=== PATIENT | female | born 1935 | race Caucasian/White ===

== ENCOUNTER 2016-05-22 21:54 | Emergency (ER) | payer MEDICARE ==
[~2016-05-22 21:54] MED LIST: ATACAND8 MG PO; BAYER CHEWABLE81 MG PO; CALCIUM CARBON500 MG PO; KLOR-CON 1010 MEQ PO; NOVOLOG PE100 UNITS/ SC; SYNTHROID100 MCG PO; TUMS500 MG PO; VICODIN EQUIVAL1 TAB PO; VITAMIN D PO
--- NOTE | 2016-05-22 22:59 | ED ORDER SUMMARY ---
..... Patient: SILVIANO BRADSHAW OrderSheet [facility] VisitID: [id number] [address] [place] [address] 81y, F Registration Date/Time: 05/22/2016 ORDER SHEET Weight: 77.1 kg (stated) Allergies: PCN GENERAL ORDERS: MEDICATION ORDERS: Afrin Nasal [place] 2 sprays (NOW, both nares) (22:23 05/22/2016 Ivan Hernandez) (Ack 22:29 HSoule) (22:35 HSoule) IV FLUIDS: ORDER SHEET NOTES: [Electronically signed by Micha Armstrong R.N. (03:23 05/23/2016)] [Electronically signed by Colby Mathias Dr. (04:18 05/25/2016)] [Electronically locked/signed by Micha Armstrong R.N. (03:05/23/2016)]
--- NOTE | 2016-05-22 22:59 | ED CLINICAL REPORT ---
Clinical Report - Physicians/Mid Levels [facility] [address] [place] [address] 05/22/2016 21:53 Patient: SILVIANO BRADSHAW Time Seen: 2210. Arrived- By ambulance. Historian- patient. HISTORY OF PRESENT ILLNESS Chief Complaint: NOSEBLEED. Since today and is still present but is improving. It was abrupt in onset and has been constant but is not gone now. Location- right nare. The patient has had epistaxis. (happened spontaneously. reports hx of these since a child. no blood thinners). Similar symptoms previously: Many times. Recent medical care: Not recently seen/assessed. REVIEW OF SYSTEMS No fever, chills, cough, difficulty breathing or chest pain. All systems otherwise negative, except as recorded above. PAST HISTORY See nurses notes. SOCIAL HISTORY Never smoker. No alcohol use or drug use. No recent travel. Is a local resident. ADDITIONAL NOTES The nursing notes have been reviewed. PHYSICAL EXAM Vital Signs: Oxygen saturation normal. Appearance: Alert. No acute distress. Eyes: Eyes normal inspection. ENT: Ears normal. Throat: Pharynx normal. Nose: Active bleeding present. Fresh clots present. Dried blood present. Neck: Normal inspection. Neck supple. CVS: Normal heart rate and rhythm. Heart sounds normal. Respiratory: No respiratory distress. Breath sounds normal. Abdomen: Soft and nontender. No organomegaly. Skin: Skin warm and dry. Normal skin color. No rash. Normal skin turgor. Extremities: Extremities exhibit normal ROM. No lower extremity edema. PROGRESS AND PROCEDURES Course of Care: The patient is a pleasant 81-year-old female presented for evaluation nosebleeds. Patient has a history of nosebleeds. Patient reports no inciting factors for the start of her nosebleed. Patient course of the last nosebleed that she has had is approximately 1 year ago. Patient reports that she's been having nosebleed problems in [place]. Patient was no inciting factors. No other symptoms noted. Laboratory studies are warranted at this time. Patient reports not being on any blood thinners or aspirin. Patient is monitored in the emergency department. Afrin nose spray was applied. The patient's nosebleed was able to be controlled with the Afrin nose spray however patient appears to have some mild dementia and continues to pick at the right Seg[place]. Patient subsequently developed a rebleed of her nose. Repeat Afrin spray was ordered. Patient tolerated procedure well. Bleeding has been controlled here in the emergency department. Because of the patient's baseline dementia, she was reportedly asking for her cane. Patient also states that she like to go home however we needed to verify that there was an appropriate place for the patient to return home. Patient does not recall her address. Once patient's address and location was confirmed, we contacted transport to have the patient return home. Patient continues to have adequate control of her nosebleed. Patient has not had any repeat nose bleeding after the second episode. Patient was confirmed to return home safely. There is a young adult that was available to help the patient into her house. The young adult also mentioned to the transport team they would be able to take care of the patient. Do not fill patient is admitted to hospital require further emergency department workup/evaluation. Bone loss throughout her stay here in the emergency department was less than 20 cc. Disposition: Discharged. Condition: good. CLINICAL IMPRESSION Acute posterior, mild epistaxis (right). Uncontrolled essential hypertension. INSTRUCTIONS Warnings: GENERAL WARNINGS: Return or contact your physician immediately if your condition worsens or changes unexpectedly, if not improving as expected, or if other problems arise. Specifically return if pain, vomiting, bleeding, breathing difficulty or fever. Your Current Medications: CONTINUE TAKING THE FOLLOWING MEDICATIONS: Aspirin Oral. Follow-up: Return to the emergency department as needed. Follow up with your doctor in three days. Reason for referral: recheck today's concerns. Summary of care provided to patient via paper. Screening today revealed the patient's blood pressure to be in the normal range. The patient should follow up with a primary care provider for blood pressure management. Understanding of the discharge instructions verbalized by patient. Follow-up with: Dougie Avelar MD, ENT, , [facility], [address], [facility], [address] Follow up in one week. Reason for referral: recheck today's concerns. Summary of care provided to patient via paper. (Electronically signed by Colby Mathias Dr. 05/25/2016 4:18)
--- NOTE | 2016-05-22 22:59 | ED NURSING NOTES ---
Clinical Report - Nurses [facility] [address] [place] [address] 05/22/2016 21:53 Patient: SILVIANO BRADSHAW TRIAGE Triage time 21:57 May 22 2016. Acuity: LEVEL 3. Chief Complaint: NOSEBLEED. 22:01 05/22/16. SEPSIS SCREEN: Sepsis Screen: negative. Negative (no infection suspected/documented). ROLO COMA SCORE: [place] Coma Scale: 15- eyes open spontaneously (4); best verbal response- oriented x 4 (5); best motor response- obeys commands (6). --22:01 Davida Milligan 21:57 05/22/16. BP: 210/72. HR: 72. RR: 20. O2 saturation: 98% on room air. Temp: 98.1 F (oral). Pain level now: 0/10. --22:01 Davida Milligan. Weight: 77.1 kg stated. Height/Length: 61 inches Per Patient. BMI: 32.1. --22:00 Davida Milligan. Medications Aspirin Oral. --21:58 Davida Milligan. Medication/allergy information source: the patient. --22:01 Davida Milligan. Allergies PCN. --21:59 Davida Milligan. History Arrived by EMS. Historian: patient. Unaccompanied. Primary physician (none). This started just prior to arrival. ( Patient reports a nosebleed for one hour. Patient denies being on blood thinners, she states she takes ASA occasionally. She reports she can feel blood clot in her throat). 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 BP: 248 / 90. HR: 80. PAST MEDICAL HX: Immunizations: up-to-date. SOCIAL HX: Former smoker, end date 1987. No alcohol use or drug use. No infectious disease exposure. ABUSE ASSESSMENT: No report of abuse. FALL RISK ASSESSMENT: Fall risk assessment completed. No fall risk identified. NUTRITIONAL RISK ASSESSMENT: The nutritional risk assessment revealed no deficiencies. FUNCTIONAL ASSESSMENT: Functional assessment: no impairments noted. LEARNING NEEDS ASSESSMENT: The learning needs assessment revealed no barriers. SKIN INTEGRITY ASSESSMENT: Skin integrity risk assessment completed. No skin integrity risk identified. --22:01 Davida Milligan. PROBLEMS: Tibia Fracture. Ovarian Cancer. Osteoporosis. Hyperventilation. Gastroesophageal Reflux. Environmental Allergies. Hyperlipidemia. Hypertension. --:59 Davida Milligan. ADDITIONAL SURGERIES: Oophorectomy. --:59 Davida Milligan. Interventions ID band on patient. To treatment room. --22: Davida Milligan. PHYSICAL ASSESSMENT 22:05/22/16. To room via stretcher. GENERAL / NEURO / PSYCH: Alert. Appears in no acute distress. HEENT: No facial asymmetry noted. Pupils equal, round and reactive to light. Right-nare and left-nare active bleeding from uncertain location. RESPIRATORY: Respirations not labored. SKIN: Skin is warm and dry. --22:02 Davida Milligan. NURSING PROGRESS NOTES Monitoring of patient in place. Head of bed elevated. Reassurance given to the patient. Two patient identifiers checked. Call light placed in reach. Side rails up x 1. Bed placed in lowest position. Brakes of bed on. Patient ready for evaluation- chart flagged and ED physician notified. ( bleeding is controlled at this time). --22:03 Davida Milligan 22:35 05/22/2016 Afrin (Oxymetazoline HCl) Nasal [place] 2 spray given. Given in both nares. Allergies verified and confirmed 5 rights. --22:35 Davida Milligan ( Patient assisted with clean up of her face and hands. Patient assisted up to use restroom. Patient states she is ready to go home.). --22:56 Davida Milligan ( Patient family unable to be contacted, patient reports she wants to take a cab home.). --23:27 Davida Milligan ( Patient requesting to see provider again, patient somewhat disoriented at this time. Provider notified and at bedside). --23:39 Davida Milligan Care transferred and report given (Micha Leary). --00:09 Davida Milligan ( Nose is still bleeding at this time. Silviano expresses a desire to go home via cab but also states "they haven't cured me." She seems confused at this time. She has made remarks such as "I haven't even seen the doctor" and "I need to go to a real hospital." Have told Silviano, many times, we will arrange for a safe ride home for her after she is cleared by the doctor. Silviano wanders the halls and cannot remember redirection/reminders from staff she is not yet cleared by the EDP and we need to ensure a safe ride home. We have made multiple attempts to call Pamela and the home number listed on her Face Sheet but no voice boxes are set up to receive messages. Multiple attempts to reach family have been unsuccessful. Staff worried Silviano will not be able to enter her home upon arrival to her house as she does not have a trujillo with her at this time.). --00:22 Micha Armstrong R.N. DISPOSITION / DISCHARGE Departure time: 0245. Condition at departure: stable. The goals identified in the patient's plan of care were met. Discharge instructions provided and reviewed with the patient (EMS). Patient verbalized understanding. Written instructions provided in Indian. Verbalized understanding (EMS). ( Silviano has no questions and voices no concerns at this time.). The patient was discharged by the physician. She was discharged home and accompanied by EMS. She left the Emergency Department via ambulance and on a stretcher. ( Per [place] [facility] crew, young man accepted responsibility for Silviano at her home. EMS crew reported home is well kept and updated.). ROLO COMA SCORE: [place] Coma Scale: 14- eyes open spontaneously (4); best verbal response- disoriented (4); best motor response- obeys commands (6). --03:23 Micha Armstrong R.N. 02:45 05/23/16. BP: 190/80 (regular adult cuff) taken on the left arm, via an automated monitor, while sitting. HR: 88 (normal rate). RR: 16 (regular, unlabored and normal). O2 saturation: 92% on room air. Temp: 97.8 F (oral). Additional comments: Dr. Mathias aware of d/c BP, okay to d/c home at this time. . --03:23 Micha Armstrong R.N. Locked/Released at 05/23/2016 3:23 by Micha Armstrong R.N.
--- NOTE | 2016-05-22 22:59 | ED CLINICAL REPORT ---
Clinical Report - Physicians/Mid Levels [facility] [address] [place] [address] 05/22/2016 21:53 Patient: SILVIANO BRADSHAW Time Seen: 2210. Arrived- By ambulance. Historian- patient. HISTORY OF PRESENT ILLNESS Chief Complaint: NOSEBLEED. Since today and is still present but is improving. It was abrupt in onset and has been constant but is not gone now. Location- right nare. The patient has had epistaxis. (happened spontaneously. reports hx of these since a child. no blood thinners). Similar symptoms previously: Many times. Recent medical care: Not recently seen/assessed. REVIEW OF SYSTEMS No fever, chills, cough, difficulty breathing or chest pain. All systems otherwise negative, except as recorded above. PAST HISTORY See nurses notes. SOCIAL HISTORY Never smoker. No alcohol use or drug use. No recent travel. Is a local resident. ADDITIONAL NOTES The nursing notes have been reviewed. PHYSICAL EXAM Vital Signs: Oxygen saturation normal. Appearance: Alert. No acute distress. Eyes: Eyes normal inspection. ENT: Ears normal. Throat: Pharynx normal. Nose: Active bleeding present. Fresh clots present. Dried blood present. Neck: Normal inspection. Neck supple. CVS: Normal heart rate and rhythm. Heart sounds normal. Respiratory: No respiratory distress. Breath sounds normal. Abdomen: Soft and nontender. No organomegaly. Skin: Skin warm and dry. Normal skin color. No rash. Normal skin turgor. Extremities: Extremities exhibit normal ROM. No lower extremity edema. PROGRESS AND PROCEDURES Course of Care: The patient is a pleasant 81-year-old female presented for evaluation nosebleeds. Patient has a history of nosebleeds. Patient reports no inciting factors for the start of her nosebleed. Patient course of the last nosebleed that she has had is approximately 1 year ago. Patient reports that she's been having nosebleed problems in [place]. Patient was no inciting factors. No other symptoms noted. Laboratory studies are warranted at this time. Patient reports not being on any blood thinners or aspirin. Patient is monitored in the emergency department. Afrin nose spray was applied. The patient's nosebleed was able to be controlled with the Afrin nose spray however patient appears to have some mild dementia and continues to pick at the right Segundo. Patient subsequently developed a rebleed of her nose. Repeat Afrin spray was ordered. Patient tolerated procedure well. Bleeding has been controlled here in the emergency department. Because of the patient's baseline dementia, she was reportedly asking for her cane. Patient also states that she like to go home however we needed to verify that there was an appropriate place for the patient to return home. Patient does not recall her address. Once patient's address and location was confirmed, we contacted transport to have the patient return home. Patient continues to have adequate control of her nosebleed. Patient has not had any repeat nose bleeding after the second episode. Patient was confirmed to return home safely. There is a young adult that was available to help the patient into her house. The young adult also mentioned to the transport team they would be able to take care of the patient. Do not fill patient is admitted to hospital require further emergency department workup/evaluation. Bone loss throughout her stay here in the emergency department was less than 20 cc. Disposition: Discharged. Condition: good. CLINICAL IMPRESSION Acute posterior, mild epistaxis (right). Uncontrolled essential hypertension. INSTRUCTIONS Warnings: GENERAL WARNINGS: Return or contact your physician immediately if your condition worsens or changes unexpectedly, if not improving as expected, or if other problems arise. Specifically return if pain, vomiting, bleeding, breathing difficulty or fever. Your Current Medications: CONTINUE TAKING THE FOLLOWING MEDICATIONS: Aspirin Oral. Follow-up: Return to the emergency department as needed. Follow up with your doctor in three days. Reason for referral: recheck today's concerns. Summary of care provided to patient via paper. Screening today revealed the patient's blood pressure to be in the normal range. The patient should follow up with a primary care provider for blood pressure management. Understanding of the discharge instructions verbalized by patient. Follow-up with: Dougie Avelar MD, ENT, , [facility], [address], [facility], [address] Follow up in one week. Reason for referral: recheck today's concerns. Summary of care provided to patient via paper. (Electronically signed by Colby Mathias Dr. 05/25/2016 4:18)
--- NOTE | 2016-05-22 22:59 | ED ORDER SUMMARY ---
..... Patient: SILVIANO BRADSHAW OrderSheet [facility] VisitID: [id number] [address] [place] [address] 81y, F Registration Date/Time: 05/22/2016 ORDER SHEET Weight: 77.1 kg (stated) Allergies: PCN GENERAL ORDERS: MEDICATION ORDERS: Afrin Nasal [place] 2 sprays (NOW, both nares) (22:23 05/22/2016 Ivan Hernandez) (Ack 22:29 HSoule) (22:35 HSoule) IV FLUIDS: ORDER SHEET NOTES: [Electronically signed by Micha Armstrong R.N. (03:23 05/23/2016)] [Electronically signed by Colby Mathias Dr. (04:18 05/25/2016)] [Electronically locked/signed by Micha Armstrong R.N. (03:05/23/2016)]
--- NOTE | 2016-05-25 04:19 | ED MAR SUMMARY ---
..... Medication Administration Record [facility] [address] [place] [address] Patient: SILVIANO BRADSHAW Visit ID: [id number] 81y, F Weight: 77.1 kg Height/Length: 61 in BMI: 32.1 ALLERGIES: PCN Given 22:35 05/22/2016 Davida Milligan, Medication Administered: AFRIN [NASAL SPRAY] (OXYMETAZOLINE HCL), Dose: 2 spray [place] Nasal [place]. Medication Ordered: Afrin Nasal [place] 2 sprays (NOW, both nares).
--- NOTE | 2016-05-25 04:19 | ED DISCHARGE INSTRUCTIONS ---
Patient: SILVIANO BRADSHAW General Instructions [facility] VisitID: [id number] [address] [place] [address] 81y, F Registration Date/Time: 05/22/2016 Acute posterior, mild epistaxis (right). Uncontrolled essential hypertension. INSTRUCTIONS Warnings: GENERAL WARNINGS: Return or contact your physician immediately if your condition worsens or changes unexpectedly, if not improving as expected, or if other problems arise. Specifically return if pain, vomiting, bleeding, breathing difficulty or fever. Your Current Medications: CONTINUE TAKING THE FOLLOWING MEDICATIONS: Aspirin Oral. Follow-up: Return to the emergency department as needed. Follow up with your doctor in three days. Reason for referral: recheck today's concerns. Summary of care provided to patient via paper. Screening today revealed the patient's blood pressure to be in the normal range. The patient should follow up with a primary care provider for blood pressure management. Understanding of the discharge instructions verbalized by patient. Follow-up with: Dougie Avelar MD, ENT, , [place] [id number] Follow up in one week. Reason for referral: recheck today's concerns. Summary of care provided to patient via paper. ADDITIONAL INFORMATION Nosebleed [Adult] Bleeding from the nose most commonly occurs due to injury or drying and cracking of the inner lining of the nose. This can occur during a "common cold," "hay fever" attack, a very hot day, or from dry air in the winter. High blood pressure and hardening of the arteries (atherosclerosis) may also cause nosebleeds. If the bleeding site is found, it may be treated with a chemical or heat or electricity to cause a blood clot to form (cauterized). If the bleeding continues after cautery or if the bleeding site cannot be found, a packing may be placed in your nose to apply pressure and stop the bleeding. The packing may be made of gauze or sponge. A small balloon catheter is sometimes used. These need to be removed by your doctor. Some types of packing dissolve on their own. Home Care: If a packing was put in your nose, unless told otherwise, do not pull on it or try to remove it yourself. You will be given an appointment to have it removed. You may also have been given antibiotics to prevent a sinus infection. If so, complete all the medicine. Do not blow your nose for 12 hours after the bleeding stops. This will allow a strong blood clot to form. Do not pick your nose. This may restart bleeding. Avoid alcohol and hot liquids for the next two days. Alcohol or hot liquids in your mouth can dilate blood vessels in your nose and cause bleeding to start again. Do not take ibuprofen (Advil, Motrin), naprosyn (Aleve) or aspirin-containing medicines since these thin the blood and may promote nose bleeding. You may take Tylenol (acetaminophen) for pain, unless another pain medicine was prescribed. If the bleeding starts again, sit up and lean forward to prevent swallowing blood. Pinch your nose tightly for exactly 5 minutes (watch the clock). If bleeding is not controlled, continue to pinch and call your doctor or return to this facility. If high blood pressure was a cause for your nosebleed, have your blood pressure checked again tomorrow. If you have a "cold" or "hay fever" or dry nasal membranes, lubricate the nasal passages by applying a small amount of Vaseline inside the nose with a Q-tip twice a day (morning and night). Avoid overheating your home, which can dry the air and worsen your condition. Follow Up with your doctor as advised for packing removal. Nasal packing should be rechecked or removed within 2-3 days. Get Prompt Medical Attention if any of the following occur: Another nosebleed that you cannot control Dizziness, weakness or fainting Fever of 100.4F (38C) or higher, or as directed by your healthcare provider Headache Sinus or facial pain Shortness of breath or trouble breathing High Blood Pressure --Established High Blood Pressure (Hypertension) is a chronic disease. The cause is unknown in most cases. It can usually be controlled with lifestyle changes and/or medicines. Symptoms of high blood pressure may include headache, dizziness, visual changes, chest pain and shortness of breath. Sometimes it causes no symptoms at all. However, even if there are no symptoms, untreated high blood pressure increases the risk of heart attack, also known as acute myocardial infarction, or AMI, and stroke. It is a serious health risk and should not be ignored. A normal blood pressure is 120/80 or less. The first (top) number is the "systolic" pressure. The second (bottom) number is the "diastolic" pressure. Hypertension exists when either the top number is 140 or higher, OR the bottom number is 90 or higher on repeated measurements. Home Care: All patients with high blood pressure should do the following to lower their pressure. If you are on medicines, then these methods may reduce or eliminate your need for medicines in the future. Begin a weight loss program if you are overweight. Reduce your salt intake. Avoid high salt foods (olives, pickles, smoked meats, salted potato chips, etc.). Do not add salt to your food at the table. Use only small amounts of salt when cooking. Begin an exercise program. Discuss with your doctor what type of exercise program would be best for you. It doesn't have to be difficult. Even brisk walking for 20 minutes three times a week is a good form of exercise. Avoid medicines which contain heart stimulants. This includes many cold and sinus decongestant pills and sprays as well as diet pills. Check the warnings about hypertension on the label. Stimulants such as amphetamine or cocaine could be lethal for someone with hypertension. Never take these. Limit your caffeine intake or switch to caffeine-free products. Stop smoking. If you are a long-time smoker, this can be hard. Enroll in a stop-smoking program to improve your chance of success. Learning how to handle stress better is an important part of any program to lower blood pressure. Learn about relaxation methods such as meditation, yoga or biofeedback. If medicines were prescribed, take them exactly as directed. Missing doses may cause your blood pressure get out of control. Consider buying an automatic blood pressure machine (available at most pharmacies). Use this to monitor your blood pressure at home and report the results to your doctor. Follow Up: Regular visits to your own physician for blood pressure checks and medicine adjustment is an important part of your care. Make a follow-up appointment as directed by our staff. Get Prompt Medical Attention if any of the following occur: Chest pain or shortness of breath Severe headache Throbbing or rushing sound in the ears Nosebleed Sudden severe abdominal pain Extreme drowsiness, confusion or fainting Dizziness or vertigo (dizziness with spinning sensation) Weakness of an arm or leg or one side of the face Difficulty with speech or vision You have been given the following additional information: Epistaxis (Adult) Hypertension, Established (Electronically signed by Colby Mathias Dr. 05/25/2016 4:18)
--- NOTE | 2016-05-25 04:19 | ED MED RECONCILIATION SUMMARY ---
Patient: SILVIANO BRADSHAW Medication Reconciliation Report [facility] VisitID: [id number] [address] [place] [address] 81y, F Registration Date/Time: 05/22/2016 Weight: 77.1 kg Height/Length: 61 in. BMI: 32.1 ALLERGIES: PCN The patient's Home Medications are listed below: CONTINUE TAKING THE FOLLOWING MEDICATIONS: Aspirin Oral The source(s) of the original Home Medication information: patient The following Medications were given to the patient in the Emergency Department: Afrin [Nasal [place]] Nasal [place] 2 spray, administered: 05/22/2016 10:35:00 PM The following Medications were prescribed to the patient: None.
--- NOTE | 2016-05-25 04:19 | ED MAR SUMMARY ---
..... Medication Administration Record [facility] [address] [place] [address] Patient: SILVIANO BRADSHAW Visit ID: [id number] 81y, F Weight: 77.1 kg Height/Length: 61 in BMI: 32.1 ALLERGIES: PCN Given 22:35 05/22/2016 Davida Milligan, Medication Administered: AFRIN [NASAL SPRAY] (OXYMETAZOLINE HCL), Dose: 2 spray [place] Nasal [place]. Medication Ordered: Afrin Nasal [place] 2 sprays (NOW, both nares).
--- NOTE | 2016-05-25 04:19 | ED MED RECONCILIATION SUMMARY ---
Patient: SILVIANO BRADSHAW Medication Reconciliation Report [facility] VisitID: [id number] [address] [place] [address] 81y, F Registration Date/Time: 05/22/2016 Weight: 77.1 kg Height/Length: 61 in. BMI: 32.1 ALLERGIES: PCN The patient's Home Medications are listed below: CONTINUE TAKING THE FOLLOWING MEDICATIONS: Aspirin Oral The source(s) of the original Home Medication information: patient The following Medications were given to the patient in the Emergency Department: Afrin [Nasal [place]] Nasal [place] 2 spray, administered: 05/22/2016 10:35:00 PM The following Medications were prescribed to the patient: None.
== END 2016-05-23 02:45 | disposition home or self-care (01) ==
LOC: ED SRH 21:54
DX: R04.0 Epistaxis (principal); I10 Essential (primary) hypertension; F03.90 Unspecified dementia, unspecified severity, without behavioral disturbance, psychotic disturbance, mood disturbance, and anxiety

== ENCOUNTER 2016-06-07 15:05 | Emergency (ER) | payer OTHER ==
--- NOTE | 2016-06-07 15:58 | DIAGNOSTIC IMAGING REPORT ---
PROCEDURE: XR WRIST MIN 3 VIEWS - LEFT INDICATION: TRAUMA/INJURY TECHNIQUE: Four views of the left wrist. COMPARISON: None. FINDINGS: Decreased mineralization. There is a transverse, comminuted, impacted distal radius with intra-articular extension. There is one full shaft width of dorsal displacement of the distal fragment including the radiocarpal articulation. The radiocarpal alignment appears preserved. Distal radial ulnar articulation appears maintained. Mild to moderate osteoarthritic changes of the first carpometacarpal and metacarpal phalangeal joint. Evidence of a prior fifth metacarpal neck fracture is seen with exuberant callus formation and moderate to persistent deformity. IMPRESSION: 1. Displaced, impacted, intra-articular distal radial fracture without dislocation. 2. Osteoarthritis. 3. Prior fifth metacarpal fracture.
--- NOTE | 2016-06-07 17:41 | ED ORDER SUMMARY ---
..... Patient: SILVIANO BRADSHAW OrderSheet [facility] VisitID: [id number] [place] [address] 81y, F Registration Date/Time: 06/07/2016 ORDER SHEET Weight: 77.5 kg (stated) Allergies: PCN GENERAL ORDERS: Wrist 3 or 4V Left Urgent (15:22 06/07/2016 EKoroleva P.A.-C) (Ack 15:30 TBergley) (15:44 Ilsa) Ice (15:23 06/07/2016 EKoroleva P.A.-C) (Ack 15:30 TBergley) (15:31 SReitz R.N.) EKG - ER Stat (15:25 06/07/2016 EKoroleva P.A.-C) (Ack 15:30 TBergley) (15:51 TBergley) Chest 1V Urgent (16:31 06/07/2016 EKoroleva P.A.-C) (Ack 16:33 TBergley) (16:46 Ilsa) Cardiac Panel Stat (16:31 06/07/2016 EKoroleva P.A.-C) (16:32 KKnebel R.N.) (Ack 16:33 TBergley) Ethyl Alcohol Urgent (17:16 06/07/2016 EKoroleva P.A.-C) (Ack 17:17 TBergley) (17:45 SReitz R.N.) Wrist 2V Left Urgent (17:16 06/07/2016 EKoroleva P.A.-C) (Ack 17:17 TBergley) (17:29 SReitz R.N.) CT Head wo Cont Urgent (18:13 06/07/2016 EKoroleva P.A.-C) (Ack 18:20 TBergley) (18:51 TBergley) MEDICATION ORDERS: IV FLUIDS: Dilaudid IV 0.5 mg (HIGH ALERT MEDICATION, NOW) (15:47 06/07/2016 EKoroleva P.A.-C) (Ack 16:00 RMarsden R.N.) (16:36 KKnebel R.N.) IV Saline Lock (15:47 06/07/2016 Jill Alvarez) (Ack 16:00 eCd Rucker) (19:32 Catherine) ORDER SHEET NOTES: [Electronically signed by Bertha Frye P.A.-C (19:56 06/07/2016)] [Electronically signed by Mitch Sam R.N. (20:03 06/07/2016)] [Electronically locked/signed by Mitch Sam R.N. (20:03 06/07/2016)]
--- NOTE | 2016-06-07 17:41 | ED NURSING NOTES ---
Clinical Report - Nurses [facility] [address] [place] [address] 06/07/2016 15:06 Patient: SILVIANO BRADSHAW TRIAGE Triage time 15:10. Acuity: LEVEL 4. Chief Complaint: FALL (GLF: pt. states she has a hx of falls. She thinks it is a "depth problem"). Alert. No acute distress. ( Pt. declines hitting her head and recalls the event. She said she does not get dizzy or feel weak before she falls she just stepped off her porch and down she went.). SEPSIS SCREEN: Sepsis Screen. Negative (no infection suspected/documented). YVONNE COMA SCORE: [place] Coma Scale: 15- eyes open spontaneously (4); best verbal response- oriented x 4 (5); best motor response- obeys commands (6). --15:25 Viry Foy R.N. 15:10 06/07/16. BP: 220/65. HR: 68. RR: 16. O2 saturation: 99%. Temp: 97.4 F. Pain level now 8/10. --15:25 Viry Foy R.N. <<STRICKEN ENTRY-- Weight: 77.1 kg estimated. Height/Length: 67 inches Estimated. BMI: 26.6. --END STRIKE>> --15:22 Viry Foy R.N.. Weight: 77.5 kg stated. Height/Length: 61 inches Per Patient. BMI: 32.3. --15:22 Viry Foy R.N. Medications Aspirin Oral. --15:24 Viry Foy R.N. Amlodipine. --15:25 Viry Foy R.N. LOSARTAN. --15:25 Viry Foy R.N. Allergies PCN. --15:24 Viry Foy R.N. History Arrived by EMS. Historian: patient. Primary physician (Dr. Rehman). Location of injuries: left wrist. This occurred today. Treatment WIRE BENDER HAND: None. PAST MEDICAL HX: Immunizations: up-to-date. SOCIAL HX: Smoker- current status unknown. No alcohol use or drug use. No infectious disease exposure. ABUSE ASSESSMENT: Abuse assessment: The patient was asked "Do you feel safe in your home?" and "Has anyone hurt you or threatened to hurt you?". No report of abuse. NUTRITIONAL RISK ASSESSMENT: The nutritional risk assessment revealed no deficiencies. LEARNING NEEDS ASSESSMENT: The learning needs assessment revealed no barriers. FALL RISK ASSESSMENT: Fall risk assessment completed per protocol. Risk factors identified include patient medications, age greater than 65 years and history of fall. Fall interventions initiated. Patient placed on stretcher. Side rails up x2. Brakes on Bed in low position. Patient visible from nurses' station and identified as a fall risk by ID band. Call light in reach of patient. Instructed not to get up without assistance. FUNCTIONAL ASSESSMENT: Functional assessment performed: cognitive impairment- Alzheimer's disease. --15:25 Viry Foy R.N. PROBLEMS: Epistaxis. Tibia Fracture. Ovarian Cancer. Osteoporosis. Hyperventilation. Gastroesophageal Reflux. Environmental Allergies. Hyperlipidemia. Hypothyroidism. Hypertension. --15:25 Viry Foy R.N. ADDITIONAL SURGERIES: Oophorectomy. --15:25 Viry Foy R.N. Interventions ID band on patient. Transported via stretcher. --15:25 Viry Foy R.N. PHYSICAL ASSESSMENT To room via stretcher. GENERAL / NEURO / PSYCH: Alert. Appears in no acute distress. RESPIRATORY: Respirations not labored. CVS: Capillary refill less than 2 seconds. SKIN: Skin intact. Skin is warm and dry. --15:25 Viry Foy R.N. EXTREMITIES: Left wrist: tenderness and swelling. --15:25 Viry Foy R.N. NURSING PROGRESS NOTES Cold pack applied. Two patient identifiers checked. Call light placed in reach. Side rails up x 2. Bed placed in lowest position. Brakes of bed on. Patient ready for evaluation- chart flagged. --15:25 Viry Foy R.N. 15:52 06/07/16. EKG time: (1550 PM). EKG was ordered, performed by a tech and shown to the ED physician. --15:52 Deepak Snyderler 16:09 06/07/16. BP: 203/70. HR: 66. O2 saturation: 95%. Pain level now: 06/08. --16:11 Myah Okeefe R.N. 16:24 06/07/2016 Site #1 started via IV in the right hand with an 22g angiocath, with aseptic technique and good blood return; two attempts. Blood drawn: rainbow set. Labeled in the presence of the patient and held. Saline lock flushed with 10 mL saline. --16:24 Myah Okeefe R.N. 16:36 06/07/2016 Dilaudid (HYDROmorphone HCl PF) IVP 0.5 mg given over 2 minute(s) via site #1. Allergies verified, confirmed 5 rights and sedative warning given to the patient. IV patency established. IV site checked: no pain, redness, or swelling. IV flushed thoroughly pre- and post-medication administration. --16:36 Myah Okeefe R.N. ( portable xray done at the bedside.). --16:42 Viry Foy R.N. ( Ortho at the bedside: assisted with reduction.). --17:15 Viry Foy R.N. 18:15. --18:42 Viry Foy R.N. 18:15 06/07/16. BP: 220/58. HR: 62. RR: 16. O2 saturation: 97%. --18:42 Viry Foy R.N. 18:35. ( assisted pt. to bathroom. Pt. tolerated well.). --18:44 Viry Foy R.N. Care transferred and report given (to Davida Russell RN). --18:50 Viry Foy R.N. DISPOSITION / DISCHARGE 19:38 06/07/2016 Site #1 removed upon discharge. Catheter intact. Bandaid applied. --19:38 Mitch Sam R.N. Departure time: 20:03. Condition at departure: improved. ( Pt was told to use ice and given an ice bag. Pt stated she would not do the ice. The friend said she would get her to the follow up.). No learning barriers present. Discharge instructions provided and reviewed with the patient. Reviewed medication(s) side effects, precautions, dosing and course information. Prescription(s) given to the patient (pain meds). Reviewed referral to an orthopedic surgeon. Patient verbalized understanding. Written instructions provided in Macedonian. The patient was discharged by the physician medical administrative assistant. She was discharged home and accompanied by spouse and gang ripsaw operator. She left the Emergency Department in a wheelchair and via private vehicle. [employer] driving. ( Pt refused to have her VS taken. Pt stated there was nothing wrong with her and she was fine.). YVONNE COMA SCORE: [place]von[place] Coma Scale: 14- eyes open spontaneously (4); best verbal response- disoriented (4); best motor response- obeys commands (6). --20:03 Mitch Sam R.N. Locked/Released at 06/07/2016 20:03 by Mitch Sam R.N.
--- NOTE | 2016-06-07 17:41 | ED CLINICAL REPORT ---
Clinical Report - Physicians/Mid Levels [facility] [address] [place] [address] 06/07/2016 15:06 Patient: SILVIANO BRADSHAW Time Seen: 15:11 Jun 07 2016. Arrived- By ambulance. Historian- EMS personnel. HISTORY OF PRESENT ILLNESS Location of injuries- right wrist. Chief Complaint: FALL. The injury occurred just prior to arrival. Fell. Occurred at home. The patient complains of moderate pain. No neck pain or loss of consciousness. (Patient reports falling in the gravel today. Patient denies head injury. Reports pain to the left wrist. Reports frequent falls. Reports tripping over some gravel while ambulating.). REVIEW OF SYSTEMS No loss of vision, chest pain, weakness, headache or nausea. All systems otherwise negative, except as recorded above. PAST HISTORY See nurses notes. Problems: Epistaxis. Tibia Fracture. Ovarian Cancer. Osteoporosis. Hyperventilation. Gastroesophageal Reflux. Environmental Allergies. Hyperlipidemia. Hypothyroidism. Hypertension. Additional Surgeries: Oophorectomy. Medications: LOSARTAN. Amlodipine. Aspirin Oral. Allergies: PCN. SOCIAL HISTORY No alcohol use or drug use. ADDITIONAL NOTES The nursing notes have been reviewed. PHYSICAL EXAM Vital Signs: 06/07/2016 15:10 BP: 220/65. HR: 68. RR: 16. O2 saturation: 99%. Temp: 97.4 F. Appearance: Alert. No acute distress. No backboard or C-collar. Does not appear to be anxious. Head: Head non-tender. No swelling of head. ENT: No dental injury. No hemotympanum. Neck: Painless ROM. Non-tender. Posterior neck: No tenderness. CVS: Heart sounds normal. Respiratory: Chest wall. No tenderness. Breath sounds normal. Chest nontender. No chest wall injury. Abdomen: No visible injury. No abdominal tenderness. Back: No tenderness. Extremities: Normal inspection. Pelvis stable. Neuro: [place] Coma Scale: 14- eyes open spontaneously (4); best verbal response- disoriented (4); best motor response- obeys commands (6). LABS, X-RAYS, AND EKG EKG: EKG time: (1550). No acute process. Rate: 1550. Normal P waves. Normal BARBIE. Lt Wrist X-ray: (IMPRESSION: 1. Displaced, impacted, intra-articular distal radial fracture without dislocation. 2. Osteoarthritis. 3. Prior fifth metacarpal fracture. Electronically Final signed by:Treasure Hopper MD 06/07/2016 3:58:39 PM IMPRESSION: 1. Decreased impaction and decrease displacement of distal radius fracture, but persistent moderate displacement. Electronically Final signed by:Treasure Hopper MD 06/07/2016 6:01:57 PM). CT Head: (IMPRESSION: 1. No CT evidence of acute intracranial process. 2. Chronic microvascular ischemic changes. Mild to moderate atrophy. 3. Questionable chronicity of nondisplaced left orbital roof and lateral orbital rim fractures, likely chronic given lack of overlying soft tissue swelling and inconsistent patient history. 4. Findings discussed with Domonique Frye at [address] scans at this facility use dose modulation, iterative reconstruction, and/or weight-based dosing when appropriate to reduce radiation dose to as low as reasonably achievable. Electronically Final signed by:Treasure Hopper MD 06/07/2016 7:35:40 PM). Laboratory Tests: CBC w Diff: (CHARLY: 06/07/2016 16:20) ( MsgRcvd 06/07/2016 16:51) Final results Test Result Flag Units (Reference) WHITE BLOOD COUNT 7.7 K/uL (4.5-11.5) RED BLOOD COUNT 3.87 L M/uL (4.00-5.20) HEMOGLOBIN 12.1 gm/dL (12.0-16.0) HEMATOCRIT 36.3 % (36.0-46.0) MEAN CELL VOLUME 94 fL (80-100) MEAN CORPUSCULAR HGB 31 pg (26-34) MEAN CORPUSCULAR HGB CONC 33 g/dL (31-37) RED CELL DISTRIBUTION WIDTH 14.3 % (11.6-14.8) PLATELET COUNT 261 K/uL (150-400) NEUTROPHIL % 80.2 H % (50-75) LYMPH % 12.6 L % (25-40) MONO % 5.2 % (3-14) EOSINOPHIL % 1.6 % (0-4) BASOPHIL % 0.4 % (0-2) Ethyl Alcohol: (CHARLY: 06/07/2016 16:20) ( [facility] [place] 17:26) Final results Test Result Flag Units (Reference) ETHYL ALCOHOL < 3.0 L mg/dL (3-10) CHEM 13 PANEL: (CHARLY: 06/07/2016 16:20) ( [facility] 06/07/2016 17:08) Final results Test Result Flag Units (Reference) GLUCOSE 109 mg/dL (70-110) BUN 18 mg/dL (7-18) CREATININE 1.1 mg/dL (0.6-1.3) Estimated GFR 50.92 mL/min Estimated GFR- >60 mL/min Note: Persistent reduction over 3 months in eGFR<60 mL/min/1.73 m2 defines CKD. Patients with eGFR values>=60 mL/min/1.73 m2 may also have CKD if evidence ofpersistent proteinuria. Additional information may be foundat www.kidney.org. SODIUM 144 mmol/L (136-145) POTASSIUM 3.5 mmol/L (3.5-5.1) CHLORIDE 106 mmol/L (98-107) CARBON DIOXIDE 27 mmol/L (21-32) CALCIUM 9.1 mg/dL (8.5-10.1) TOTAL PROTEIN 7.1 g/dL (6.4-8.2) ALBUMIN 3.5 g/dL (3.3-5.0) BILIRUBIN, TOTAL 0.4 mg/dL (0.0-1.0) ALKALINE PHOSPHATASE 112 U/L (46-116) AST (SGOT) 30 U/L (15-37) ALT (SGPT) 26 U/L (12-78) CPK 203 U/L (24-260) MAGNESIUM 2.3 mg/dL (1.8-2.4) TROPONIN I 0.07 ng/mL (0.00-1.5) TROPONIN REFERENCE RANGE:<0.1 NEGATIVE0.1-1.5 INDETERMINANT>1.5 POSITIVE . PROGRESS AND PROCEDURES Splint Application: Time: 1729Jun 07 2016. Fiberglass sugar tong splint applied to right wrist and forearm. Splint applied by tech with direct supervision by me. Reassessed extremity following splint application. Neurovascular intact. Follow-up recommended within 5 days. Course of Care: patient arrived with a deformity to the left wrist, with good distal sensation, distal intra-articular radial fracture noted, and was resent by or so, see Dr. Russell, after discussion with him and he'll see patient in the ER. Better alignment post procedure. Patient with limited family, her power of research attorney is at another hospital with a family member having heart issues. Family friend here. Patient at times reports that there are people in the room under her blanket, at times reports she is not a nurse, at other times states various phrases that are slightly confusing, most consistent with her dementia, and staff is very familiar with her, due to her recent multiple falls. She lives at home, and some people come by here her to check on her. Urged family friend to have patient follow with primary care for her, she may need further assistance with wrist fracture, as well as home management of her dementia. Obtain CT of the head, given unclear cause of her fall. No signs of new intracranial fracture. Concerns of subacute or possibly acute facial fractures, however not consistent with any signs of injury or tenderness on exam. 06/07/2016 18:15 BP: 220/58. HR: 62. RR: 16. O2 saturation: 97%. Patient is stable. Physical exam findings are improved. Symptoms better. Patient/family counseled. Disposition: Discharged. CLINICAL IMPRESSION Displaced and angulated transverse fracture of the distal left radius Fall. INSTRUCTIONS Apply ice. Elevate affected areas above chest level. Prescription Medications: Hydrocodone/APAP 5mg / 325mg: take 1 orally every 6 hours as needed for pain. Dispense twenty (20). No refill. Follow-up with: [facility], , [address], , [place], [address] Follow up. Call for the next available appointment. (Electronically signed by Bertha Frye P.A.-C 06/07/2016 19:57)
--- NOTE | 2016-06-07 17:41 | ED CLINICAL REPORT ---
Clinical Report - Physicians/Mid Levels [facility] [address] [place] [address] 06/07/2016 15:06 Patient: SILVIANO BRADSHAW Time Seen: 15:11 Jun 07 2016. Arrived- By ambulance. Historian- EMS personnel. HISTORY OF PRESENT ILLNESS Location of injuries- right wrist. Chief Complaint: FALL. The injury occurred just prior to arrival. Fell. Occurred at home. The patient complains of moderate pain. No neck pain or loss of consciousness. (Patient reports falling in the gravel today. Patient denies head injury. Reports pain to the left wrist. Reports frequent falls. Reports tripping over some gravel while ambulating.). REVIEW OF SYSTEMS No loss of vision, chest pain, weakness, headache or nausea. All systems otherwise negative, except as recorded above. PAST HISTORY See nurses notes. Problems: Epistaxis. Tibia Fracture. Ovarian Cancer. Osteoporosis. Hyperventilation. Gastroesophageal Reflux. Environmental Allergies. Hyperlipidemia. Hypothyroidism. Hypertension. Additional Surgeries: Oophorectomy. Medications: LOSARTAN. Amlodipine. Aspirin Oral. Allergies: PCN. SOCIAL HISTORY No alcohol use or drug use. ADDITIONAL NOTES The nursing notes have been reviewed. PHYSICAL EXAM Vital Signs: 06/07/2016 15:10 BP: 220/65. HR: 68. RR: 16. O2 saturation: 99%. Temp: 97.4 F. Appearance: Alert. No acute distress. No backboard or C-collar. Does not appear to be anxious. Head: Head non-tender. No swelling of head. ENT: No dental injury. No hemotympanum. Neck: Painless ROM. Non-tender. Posterior neck: No tenderness. CVS: Heart sounds normal. Respiratory: Chest wall. No tenderness. Breath sounds normal. Chest nontender. No chest wall injury. Abdomen: No visible injury. No abdominal tenderness. Back: No tenderness. Extremities: Normal inspection. Pelvis stable. Neuro: [place] Coma Scale: 14- eyes open spontaneously (4); best verbal response- disoriented (4); best motor response- obeys commands (6). LABS, X-RAYS, AND EKG EKG: EKG time: (1550). No acute process. Rate: 1550. Normal P waves. Normal BARBIE. Lt Wrist X-ray: (IMPRESSION: 1. Displaced, impacted, intra-articular distal radial fracture without dislocation. 2. Osteoarthritis. 3. Prior fifth metacarpal fracture. Electronically Final signed by:Treasure Hopper MD 06/07/2016 3:58:39 PM IMPRESSION: 1. Decreased impaction and decrease displacement of distal radius fracture, but persistent moderate displacement. Electronically Final signed by:Treasure Hopper MD 06/07/2016 6:01:57 PM). CT Head: (IMPRESSION: 1. No CT evidence of acute intracranial process. 2. Chronic microvascular ischemic changes. Mild to moderate atrophy. 3. Questionable chronicity of nondisplaced left orbital roof and lateral orbital rim fractures, likely chronic given lack of overlying soft tissue swelling and inconsistent patient history. 4. Findings discussed with Domonique Frye at [address] scans at this facility use dose modulation, iterative reconstruction, and/or weight-based dosing when appropriate to reduce radiation dose to as low as reasonably achievable. Electronically Final signed by:Treasure Hopper MD 06/07/2016 7:35:40 PM). Laboratory Tests: CBC w Diff: (CHARLY: 06/07/2016 16:20) ( MsgRcvd 06/07/2016 16:51) Final results Test Result Flag Units (Reference) WHITE BLOOD COUNT 7.7 K/uL (4.5-11.5) RED BLOOD COUNT 3.87 L M/uL (4.00-5.20) HEMOGLOBIN 12.1 gm/dL (12.0-16.0) HEMATOCRIT 36.3 % (36.0-46.0) MEAN CELL VOLUME 94 fL (80-100) MEAN CORPUSCULAR HGB 31 pg (26-34) MEAN CORPUSCULAR HGB CONC 33 g/dL (31-37) RED CELL DISTRIBUTION WIDTH 14.3 % (11.6-14.8) PLATELET COUNT 261 K/uL (150-400) NEUTROPHIL % 80.2 H % (50-75) LYMPH % 12.6 L % (25-40) MONO % 5.2 % (3-14) EOSINOPHIL % 1.6 % (0-4) BASOPHIL % 0.4 % (0-2) Ethyl Alcohol: (CHARLY: 06/07/2016 16:20) ( [facility] [place] [place]) Final results Test Result Flag Units (Reference) ETHYL ALCOHOL < 3.0 L mg/dL (3-10) CHEM 13 PANEL: (CHARLY: 06/07/2016 16:20) ( [facility] [place] [facility]08) Final results Test Result Flag Units (Reference) GLUCOSE 109 mg/dL (70-110) BUN 18 mg/dL (7-18) CREATININE 1.1 mg/dL (0.6-1.3) Estimated GFR 50.92 mL/min Estimated GFR- >60 mL/min Note: Persistent reduction over 3 months in eGFR<60 mL/min/1.73 m2 defines CKD. Patients with eGFR values>=60 mL/min/1.73 m2 may also have CKD if evidence ofpersistent proteinuria. Additional information may be foundat www.kidney.org. SODIUM 144 mmol/L (136-145) POTASSIUM 3.5 mmol/L (3.5-5.1) CHLORIDE 106 mmol/L (98-107) CARBON DIOXIDE 27 mmol/L (21-32) CALCIUM 9.1 mg/dL (8.5-10.1) TOTAL PROTEIN 7.1 g/dL (6.4-8.2) ALBUMIN 3.5 g/dL (3.3-5.0) BILIRUBIN, TOTAL 0.4 mg/dL (0.0-1.0) ALKALINE PHOSPHATASE 112 U/L (46-116) AST (SGOT) 30 U/L (15-37) ALT (SGPT) 26 U/L (12-78) CPK 203 U/L (24-260) MAGNESIUM 2.3 mg/dL (1.8-2.4) TROPONIN I 0.07 ng/mL (0.00-1.5) TROPONIN REFERENCE RANGE:<0.1 NEGATIVE0.1-1.5 INDETERMINANT>1.5 POSITIVE . PROGRESS AND PROCEDURES Splint Application: Time: 1729Jun 07 2016. Fiberglass sugar tong splint applied to right wrist and forearm. Splint applied by tech with direct supervision by me. Reassessed extremity following splint application. Neurovascular intact. Follow-up recommended within 5 days. Course of Care: patient arrived with a deformity to the left wrist, with good distal sensation, distal intra-articular radial fracture noted, and was resent by or so, see Dr. Russell, after discussion with him and he'll see patient in the ER. Better alignment post procedure. Patient with limited family, her power of family law attorney is at another hospital with a family member having heart issues. Family friend here. Patient at times reports that there are people in the room under her blanket, at times reports she is not a nurse, at other times states various phrases that are slightly confusing, most consistent with her dementia, and staff is very familiar with her, due to her recent multiple falls. She lives at home, and some people come by here her to check on her. Urged family friend to have patient follow with primary care for her, she may need further assistance with wrist fracture, as well as home management of her dementia. Obtain CT of the head, given unclear cause of her fall. No signs of new intracranial fracture. Concerns of subacute or possibly acute facial fractures, however not consistent with any signs of injury or tenderness on exam. 06/07/2016 18:15 BP: 220/58. HR: 62. RR: 16. O2 saturation: 97%. Patient is stable. Physical exam findings are improved. Symptoms better. Patient/family counseled. Disposition: Discharged. CLINICAL IMPRESSION Displaced and angulated transverse fracture of the distal left radius Fall. INSTRUCTIONS Apply ice. Elevate affected areas above chest level. Prescription Medications: Hydrocodone/APAP 5mg / 325mg: take 1 orally every 6 hours as needed for pain. Dispense twenty (20). No refill. Follow-up with: [facility], , [address], , [place], [address] Follow up. Call for the next available appointment. (Electronically signed by Bertha Frye P.A.-C 06/07/2016 19:57)
--- NOTE | 2016-06-07 17:41 | ED ORDER SUMMARY ---
..... Patient: SILVIANO BRADSHAW OrderSheet [facility] VisitID: [id number] [place] [address] 81y, F Registration Date/Time: 06/07/2016 ORDER SHEET Weight: 77.5 kg (stated) Allergies: PCN GENERAL ORDERS: Wrist 3 or 4V Left Urgent (15:22 06/07/2016 EKoroleva P.A.-C) (Ack 15:30 TBergley) (15:44 Ilsa) Ice (15:23 06/07/2016 EKoroleva P.A.-C) (Ack 15:30 TBergley) (15:31 SReitz R.N.) EKG - ER Stat (15:25 06/07/2016 EKoroleva P.A.-C) (Ack 15:30 TBergley) (15:51 TBergley) Chest 1V Urgent (16:31 06/07/2016 EKoroleva P.A.-C) (Ack 16:33 TBergley) (16:46 Ilsa) Cardiac Panel Stat (16:31 06/07/2016 EKoroleva P.A.-C) (16:32 KKnebel R.N.) (Ack 16:33 TBergley) Ethyl Alcohol Urgent (17:16 06/07/2016 EKoroleva P.A.-C) (Ack 17:17 TBergley) (17:45 SReitz R.N.) Wrist 2V Left Urgent (17:16 06/07/2016 EKoroleva P.A.-C) (Ack 17:17 TBergley) (17:29 SReitz R.N.) CT Head wo Cont Urgent (18:13 06/07/2016 EKoroleva P.A.-C) (Ack 18:20 TBergley) (18:51 TBergley) MEDICATION ORDERS: IV FLUIDS: Dilaudid IV 0.5 mg (HIGH ALERT MEDICATION, NOW) (15:47 06/07/2016 EKoroleva P.A.-C) (Ack 16:00 RMarsden R.N.) (16:36 KKnebel R.N.) IV Saline Lock (15:47 06/07/2016 Jill Alvarez) (Ack 16:00 Ced Rucker) (19:32 Catherine) ORDER SHEET NOTES: [Electronically signed by Bertha Frye P.A.-C (19:56 06/07/2016)] [Electronically signed by Mitch Sam R.N. (20:03 06/07/2016)] [Electronically locked/signed by Mitch Sam R.N. (20:03 06/07/2016)]
--- NOTE | 2016-06-07 17:41 | ED NURSING NOTES ---
Clinical Report - Nurses [facility] [address] [place] [address] 06/07/2016 15:06 Patient: SILVIANO BRADSHAW TRIAGE Triage time 15:10. Acuity: LEVEL 4. Chief Complaint: FALL (GLF: pt. states she has a hx of falls. She thinks it is a "depth problem"). Alert. No acute distress. ( Pt. declines hitting her head and recalls the event. She said she does not get dizzy or feel weak before she falls she just stepped off her porch and down she went.). SEPSIS SCREEN: Sepsis Screen. Negative (no infection suspected/documented). YVONNE COMA SCORE: [place] Coma Scale: 15- eyes open spontaneously (4); best verbal response- oriented x 4 (5); best motor response- obeys commands (6). --15:25 Viry Foy R.N. 15:10 06/07/16. BP: 220/65. HR: 68. RR: 16. O2 saturation: 99%. Temp: 97.4 F. Pain level now 8/10. --15:25 Viry Foy R.N. <<STRICKEN ENTRY-- Weight: 77.1 kg estimated. Height/Length: 67 inches Estimated. BMI: 26.6. --END STRIKE>> --15:22 Viry Foy R.N.. Weight: 77.5 kg stated. Height/Length: 61 inches Per Patient. BMI: 32.3. --15:22 Viry Foy R.N. Medications Aspirin Oral. --15:24 Viry Foy R.N. Amlodipine. --15:25 Viry Foy R.N. LOSARTAN. --15:25 Viry Foy R.N. Allergies PCN. --15:24 Viry Foy R.N. History Arrived by EMS. Historian: patient. Primary physician (Dr. Rehman). Location of injuries: left wrist. This occurred today. 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 PAST MEDICAL HX: Immunizations: up-to-date. SOCIAL HX: Smoker- current status unknown. No alcohol use or drug use. No infectious disease exposure. ABUSE ASSESSMENT: Abuse assessment: The patient was asked "Do you feel safe in your home?" and "Has anyone hurt you or threatened to hurt you?". No report of abuse. NUTRITIONAL RISK ASSESSMENT: The nutritional risk assessment revealed no deficiencies. LEARNING NEEDS ASSESSMENT: The learning needs assessment revealed no barriers. FALL RISK ASSESSMENT: Fall risk assessment completed per protocol. Risk factors identified include patient medications, age greater than 65 years and history of fall. Fall interventions initiated. Patient placed on stretcher. Side rails up x2. Brakes on Bed in low position. Patient visible from nurses' station and identified as a fall risk by ID band. Call light in reach of patient. Instructed not to get up without assistance. FUNCTIONAL ASSESSMENT: Functional assessment performed: cognitive impairment- Alzheimer's disease. --15:25 Viry Foy R.N. PROBLEMS: Epistaxis. Tibia Fracture. Ovarian Cancer. Osteoporosis. Hyperventilation. Gastroesophageal Reflux. Environmental Allergies. Hyperlipidemia. Hypothyroidism. Hypertension. --15:25 Viry Foy R.N. ADDITIONAL SURGERIES: Oophorectomy. --15:25 Viry Foy R.N. Interventions ID band on patient. Transported via stretcher. --15:25 Viry Foy R.N. PHYSICAL ASSESSMENT To room via stretcher. GENERAL / NEURO / PSYCH: Alert. Appears in no acute distress. RESPIRATORY: Respirations not labored. CVS: Capillary refill less than 2 seconds. SKIN: Skin intact. Skin is warm and dry. --15:25 Viry Foy R.N. EXTREMITIES: Left wrist: tenderness and swelling. --15:25 Viry Foy R.N. NURSING PROGRESS NOTES Cold pack applied. Two patient identifiers checked. Call light placed in reach. Side rails up x 2. Bed placed in lowest position. Brakes of bed on. Patient ready for evaluation- chart flagged. --15:25 Viry Foy R.N. 15:52 06/07/16. EKG time: (1550 PM). EKG was ordered, performed by a tech and shown to the ED physician. --15:52 Deepak Snyderler 16:09 06/07/16. BP: 203/70. HR: 66. O2 saturation: 95%. Pain level now: 06/08. --16:11 Myah Okeefe R.N. 16:24 06/07/2016 Site #1 started via IV in the right hand with an 22g angiocath, with aseptic technique and good blood return; two attempts. Blood drawn: rainbow set. Labeled in the presence of the patient and held. Saline lock flushed with 10 mL saline. --16:24 Myah Okeefe R.N. 16:36 06/07/2016 Dilaudid (HYDROmorphone HCl PF) IVP 0.5 mg given over 2 minute(s) via site #1. Allergies verified, confirmed 5 rights and sedative warning given to the patient. IV patency established. IV site checked: no pain, redness, or swelling. IV flushed thoroughly pre- and post-medication administration. --16:36 Myah Okeefe R.N. ( portable xray done at the bedside.). --16:42 Viry Foy R.N. ( Ortho at the bedside: assisted with reduction.). --17:15 Viry Foy R.N. 18:15. --18:42 Viry Foy R.N. 18:15 06/07/16. BP: 220/58. HR: 62. RR: 16. O2 saturation: 97%. --18:42 Viry oFy R.N. 18:35. ( assisted pt. to bathroom. Pt. tolerated well.). --18:44 Viry Foy R.N. Care transferred and report given (to Davida Russell RN). --18:50 Viry Foy R.N. DISPOSITION / DISCHARGE 19:38 06/07/2016 Site #1 removed upon discharge. Catheter intact. Bandaid applied. --19:38 Mitch Sam R.N. Departure time: 20:03. Condition at departure: improved. ( Pt was told to use ice and given an ice bag. Pt stated she would not do the ice. The friend said she would get her to the follow up.). No learning barriers present. Discharge instructions provided and reviewed with the patient. Reviewed medication(s) side effects, precautions, dosing and course information. Prescription(s) given to the patient (pain meds). Reviewed referral to an orthopedic surgeon. Patient verbalized understanding. Written instructions provided in Italian. The patient was discharged by the physician assistant hvac mechanic. She was discharged home and accompanied by spouse and salvage clerk. She left the Emergency Department in a wheelchair and via private vehicle. [employer] driving. ( Pt refused to have her VS taken. Pt stated there was nothing wrong with her and she was fine.). YVONNE COMA SCORE: [place]vonne Coma Scale: 14- eyes open spontaneously (4); best verbal response- disoriented (4); best motor response- obeys commands (6). --20:03 Mitch Sam R.N. Locked/Released at 06/07/2016 20:03 by Mitch Sam R.N.
--- NOTE | 2016-06-07 17:58 | DIAGNOSTIC IMAGING REPORT ---
PROCEDURE: XR CHEST 1 VIEW INDICATION: FALL TECHNIQUE: Single view chest. 1646 hours COMPARISON: 10/26/2015 FINDINGS: Mild cardiomegaly. Ectatic thoracic aorta. No central venous congestion. Coarse interstitial markings in hyperinflated, mildly hyperlucent lungs. Bibasilar strandy densities. No pneumothorax. Grossly intact osseous structures with demineralization. IMPRESSION: 1. Chronic COPD or senescent changes in the lungs. 2. Enlarged heart without CHF. No acute change from prior.
--- NOTE | 2016-06-07 18:02 | DIAGNOSTIC IMAGING REPORT ---
PROCEDURE: XR WRIST 1 OR 2 VIEWS - LEFT INDICATION: POST REDUCTION TECHNIQUE: Two views left wrist post reduction, 1726 hours COMPARISON: 1535 hours FINDINGS: Splint material is in place. There is decreased impaction of the transverse comminuted distal radius fracture but persistent moderate dorsal displacement of the distal fragment. There is suboptimal positioning of the hand crowding the proximal carpal row structures. Radiocarpal alignment is not well assessed. IMPRESSION: 1. Decreased impaction and decrease displacement of distal radius fracture, but persistent moderate displacement.
--- NOTE | 2016-06-07 19:35 | DIAGNOSTIC IMAGING REPORT ---
PROCEDURE: CT HEAD WITHOUT CONTRAST INDICATION: TRAUMA/INJURY TECHNIQUE: Axial CT images were acquired through the head. Coronal and sagittal reformations were created. COMPARISON: None. FINDINGS: Mild to moderate cerebral cortical atrophy. Moderate patchy hypodensity in the periventricular and subcortical white matter. No focal cortical defects. No intracranial hemorrhage or extraaxial fluid collections. Ventricles are normal in size, shape and position. There is no mass, mass effect or midline shift. The ferreira-white matter differentiation is normal. There is no edema. Minor calcific atherosclerosis of the intracranial internal carotid arteries. The calvarium is intact. The sinuses and mastoids are normally aerated. Nondisplaced fracture is seen transversely involving the left orbital roof, lateral orbital rim, and extending dorsally through the frontal bone. IMPRESSION: 1. No CT evidence of acute intracranial process. 2. Chronic microvascular ischemic changes. Mild to moderate atrophy. 3. Questionable chronicity of nondisplaced left orbital roof and lateral orbital rim fractures, likely chronic given lack of overlying soft tissue swelling and inconsistent patient history. 4. Findings discussed with Domonique Frye at [address] scans at this facility use dose modulation, iterative reconstruction, and/or weight-based dosing when appropriate to reduce radiation dose to as low as reasonably achievable.
--- NOTE | 2016-06-07 20:04 | ED MAR SUMMARY ---
..... Medication Administration Record [facility] [address] [place] [address] Patient: SILVIANO BRADSHAW Visit ID: [id number] 81y, F Weight: 77.5 kg Height/Length: 61 in BMI: 32.3 ALLERGIES: PCN Given 16:36 06/07/2016 Myah Okeefe R.N. Medication Administered: DILAUDID [IVP] (HYDROMORPHONE HCL PF), Dose: 0.5 mg IVP over 2 minute(s), Site: #1 right hand. Medication Ordered: Dilaudid IV 0.5 mg (HIGH ALERT MEDICATION, NOW).
--- NOTE | 2016-06-07 20:04 | ED DISCHARGE INSTRUCTIONS ---
Patient: SILVIANO BRADSHAW General Instructions [facility] VisitID: [id number] [address] [place] [id number] 81[place], F Registration Date/Time: 06/07/2016 Displaced and angulated transverse fracture of the distal left radius Fall. INSTRUCTIONS Apply ice. Elevate affected areas above chest level. Prescription Medications: Hydrocodone/APAP 5mg / 325mg: take 1 orally every 6 hours as needed for pain. Dispense twenty (20). No refill. Follow-up with: [facility], , [address], [place], [id number] Follow up. Call for the next available appointment. ADDITIONAL INFORMATION Fall, Uncertain Cause You have had a fall today. but the cause of your fall is not certain. Falls can occur due to slipping, tripping or losing your balance. A fall can also occur from a fainting spell or seizure. Because the cause of your fall today is not certain, it is possible that a fainting spell or seizure was the cause. This means that it could happen again, without warning. If you fall again, without a cause, then you should return to this facility promptly to have further tests. Otherwise, follow up with your doctor as explained below. Home Care: 1) Rest today and resume your normal activities as soon as you are feeling back to normal. It is best to remain with someone who can check on you for the next 24 hours to watch for another episode of falling. 2) If you were injured during the fall, follow the advice from your doctor regarding care of your injury. 3) If you become light-headed or dizzy, lie down immediately or sit and lean forward with your head down. 4) As a precaution, do not drive a car or operate dangerous equipment, do not take a bath alone (use a shower instead) and do not swim alone until you see your doctor. A condition causing fainting or seizures must be ruled out before resuming these activities. 5)You may use acetaminophen (Tylenol) or ibuprofen (Motrin, Advil) to control pain, unless another pain medicine was prescribed. [ NOTE : If you have chronic liver or kidney disease or ever had a stomach ulcer or GI bleeding, talk with your doctor before using these medicines.] 6) Keep your appointments for any further testing that may have been scheduled for you. Follow Up: Unless, given other advice, call your doctor on the next office day to advise of your fall and to schedule an appointment. Get Prompt Medical Attention if any of the following occur: -- Another unexplained fall -- Dizziness, fainting or seizure -- Severe headache -- Chest pain or shortness of breath -- Palpitations (very rapid or very slow or irregular heart beat) -- Blood in vomit, stools (black or red color) -- Weakness of an arm or leg or one side of the face -- Difficulty with speech or vision Fracture:Wrist (Colles) [Reduction Needed] You have a break (fracture) of the forearm bone (radius) where it attaches to the wrist. This is sometimes called a COLLES FRACTURE. The bone is out of place and must be "set" (reduced) to make it straight again. Once the bone is straightened a splint or cast will be applied. The splint or cast must remain in place until the bone heals (usually 4-6 weeks). Home Care: 1) Keep your arm elevated to reduce pain and swelling. When sitting or lying down elevate your arm above the level of your heart. You can do this by placing your arm on a pillow that rests on your chest or on a pillow at your side. This is most important during the first 48 hours after injury. 2) Apply an ice pack (ice cubes in a plastic bag, wrapped in a towel) over the injured area for 20 minutes every 1-2 hours the first day. You can place the ice pack inside the sling and directly over the splint/cast. Continue with ice packs 3-4 times a day for the next two days, then as needed for the relief of pain and swelling. 3) Keep the cast/splint completely dry at all times. Bathe with your cast/splint out of the water, protected with a large plastic bag, rubber-banded at the top end. If a fiberglass cast/splint gets wet, you can dry it with a hair-dryer. 4) You may use acetaminophen (Tylenol) or ibuprofen (Motrin, Advil) to control pain, unless another pain medicine was prescribed. [ NOTE : If you have chronic liver or kidney disease or ever had a stomach ulcer or GI bleeding, talk with your doctor before using these medicines.] Follow Up with your doctor in one week, or as advised by our staff, to be sure the bone is healing properly. If a splint was applied, it will be changed to a cast during your follow-up visit. There is a chance that the fracture will move out of place after it is set before the ends begin to seal together. Therefore, it is important that you follow-up as directed for a repeat X-ray within the next seven days. [NOTE: A radiologist will review any X-rays that were taken. We will notify you of any new findings that may affect your care.] Get Prompt Medical Attention if any of the following occur: -- The plaster cast or splint becomes wet or soft -- The fiberglass cast or splint remains wet for more than 24 hours -- Increased tightness or pain under the cast or splint -- Fingers become swollen, cold, blue, numb or tingly Fracture: Wrist (General) You have a fracture (break) of a bone in your wrist. This may be a small crack or chip in the bone; or a major break with the broken parts pushed out of position. Wrist fractures are treated with a splint or cast. They take about 4-6 weeks to heal. Severe injuries may require surgery. Home Care: Keep your arm elevated to reduce pain and swelling. When sitting or lying down elevate your arm above the level of your heart. You can do this by placing your arm on a pillow that rests on your chest or on a pillow at your side. This is most important during the first 48 hours after injury. Apply an ice pack (ice cubes in a plastic bag, wrapped in a towel) over the injured area for 20 minutes every 1-2 hours the first day. You can place the ice pack inside the sling and directly over the splint/cast. Continue with ice packs 3-4 times a day for the next two days, then as needed for the relief of pain and swelling. Keep the cast/splint completely dry at all times. Bathe with your cast/splint out of the water, protected with a large plastic bag, rubber-banded at the top end. If a fiberglass splint/cast gets wet, you can dry it with a hair-dryer. You may use acetaminophen (Tylenol) or ibuprofen (Motrin, Advil) to control pain, unless another pain medicine was prescribed. [NOTE: If you have chronic liver or kidney disease or ever had a stomach ulcer or GI bleeding, talk with your doctor before using these medicines.] Follow Up with your doctor in one week, or as advised by our staff, to be sure the bone is healing properly. If a splint was applied, it will be changed to a cast during your follow-up visit. [NOTE: Any X-rays taken will be reviewed by a radiologist. You will be notified if there are any new findings that may affect your care.] Get Prompt Medical Attention if any of the following occur: The plaster cast or splint becomes wet or soft The fiberglass cast or splint remains wet for more than 24 hours Increased tightness or pain under the cast or splint Fingers become swollen, cold, blue, numb or tingly Hydrocodone Bitartrate, Acetaminophen Oral tablet What is this medicine? ACETAMINOPHEN; HYDROCODONE (a set a JUAN eunice fen; gail droe KOE done) is a pain reliever. It is used to treat mild to moderate pain. How should I use this medicine? Take this medicine by mouth. Swallow it with a full glass of water. Follow the directions on the prescription label. If the medicine upsets your stomach, take the medicine with food or milk. Do not take more than you are told to take. Talk to your bonded structures repairer regarding the use of this medicine in children. This medicine is not approved for use in children. What side effects may I notice from receiving this medicine? Side effects that you should report to your doctor or health post acute care registered nurse as soon as possible: allergic reactions like skin rash, itching or hives, swelling of the face, lips, or tongue breathing problems confusion feeling faint or lightheaded, falls stomach pain yellowing of the eyes or skin Side effects that usually do not require medical attention (report to your doctor or health post acute care registered nurse if they continue or are bothersome): nausea, vomiting stomach upset What may interact with this medicine? alcohol antihistamines isoniazid medicines for depression, anxiety, or psychotic disturbances medicines for sleep muscle relaxants naltrexone narcotic medicines (opiates) for pain phenobarbital ritonavir tramadol What if I miss a dose? If you miss a dose, take it as soon as you can. If it is almost time for your next dose, take only that dose. Do not take double or extra doses. Where should I keep my medicine? Keep out of the reach of children. This medicine can be abused. Keep your medicine in a safe place to protect it from theft. Do not share this medicine with anyone. Selling or giving away this medicine is dangerous and against the law. Store at room temperature between 15 and 30 degrees C (59 and 86 degrees F). Protect from light. Keep container tightly closed. Throw away any unused medicine after the expiration date. Discard unused medicine and used packaging carefully. Pets and children can be harmed if they find used or lost packages. What should I tell my health care provider before I take this medicine? They need to know if you have any of these conditions: brain tumor Crohn's disease, inflammatory bowel disease, or ulcerative colitis drink more than 3 alcohol-containing drinks per day drug abuse or addiction head injury heart or circulation problems kidney disease or problems going to the bathroom liver disease lung disease, asthma, or breathing problems an unusual or allergic reaction to acetaminophen, hydrocodone, other opioid analgesics, other medicines, foods, dyes, or preservatives or trying to get breast-feeding What should I watch for while using this medicine? Tell your doctor or health post acute care registered nurse if your pain does not go away, if it gets worse, or if you have new or a different type of pain. You may develop tolerance to the medicine. Tolerance means that you will need a higher dose of the medicine for pain relief. Tolerance is normal and is expected if you take the medicine for a long time. Do not suddenly stop taking your medicine because you may develop a severe reaction. Your body becomes used to the medicine. This does NOT mean you are addicted. Addiction is a behavior related to getting and using a drug for a non-medical reason. If you have pain, you have a medical reason to take pain medicine. Your doctor will tell you how much medicine to take. If your doctor wants you to stop the medicine, the dose will be slowly lowered over time to avoid any side effects. You may get drowsy or dizzy when you first start taking the medicine or change doses. Do not drive, use machinery, or do anything that may be dangerous until you know how the medicine affects you. Stand or sit up slowly. There are different types of narcotic medicines (opiates) for pain. If you take more than one type at the same time, you may have more side effects. Give your health care provider a list of all medicines you use. Your doctor will tell you how much medicine to take. Do not take more medicine than directed. Call emergency for help if you have problems breathing. The medicine will cause constipation. Try to have a bowel movement at least every 2 to 3 days. If you do not have a bowel movement for 3 days, call your doctor or health post acute care registered nurse. Too much acetaminophen can be very dangerous. Do not take Tylenol (acetaminophen) or medicines that contain acetaminophen with this medicine. Many non-prescription medicines contain acetaminophen. Always read the labels carefully. You have been given the following additional information: Fall, Uncertain Cause Colles Fracture, Reduction Required Fracture, Wrist [General] Hydrocodone Bitartrate, Acetaminophen Oral tablet (Electronically signed by Bertha Frye P.A.-C 06/07/2016 19:57)
--- NOTE | 2016-06-07 20:04 | ED MED RECONCILIATION SUMMARY ---
Patient: SILVIANO BRADSHAW Medication Reconciliation Report [facility] VisitID: [id number] [address] [place] [address] 81y, F Registration Date/Time: 06/07/2016 Weight: 77.5 kg Height/Length: 61 in. BMI: 32.3 ALLERGIES: PCN The patient's Home Medications are listed below: THE FOLLOWING MEDICATIONS NEED TO BE RECONCILED: Amlodipine Aspirin Oral LOSARTAN The source(s) of the original Home Medication information: Not obtained. The following Medications were given to the patient in the Emergency Department: Dilaudid [IVP] IVP 0.5 mg, administered: 06/07/2016 4:36:00 PM The following Medications were prescribed to the patient: Hydrocodone/APAP 5mg / 325mg: take 1 orally every 6 hours as needed for pain. Dispense twenty (20). No refill. -- Bertha Frye, PMikeAMike-C
--- NOTE | 2016-06-07 20:04 | ED MAR SUMMARY ---
..... Medication Administration Record [facility] [address] [place] [address] Patient: SILVIANO BRADSHAW Visit ID: [id number] 81y, F Weight: 77.5 kg Height/Length: 61 in BMI: 32.3 ALLERGIES: PCN Given 16:36 06/07/2016 Myah Okeefe R.N. Medication Administered: DILAUDID [IVP] (HYDROMORPHONE HCL PF), Dose: 0.5 mg IVP over 2 minute(s), Site: #1 right hand. Medication Ordered: Dilaudid IV 0.5 mg (HIGH ALERT MEDICATION, NOW).
--- NOTE | 2016-06-07 20:04 | ED MED RECONCILIATION SUMMARY ---
Patient: SILVIANO BRADSHAW Medication Reconciliation Report [facility] VisitID: [id number] [address] [place] [address] 81y, F Registration Date/Time: 06/07/2016 Weight: 77.5 kg Height/Length: 61 in. BMI: 32.3 ALLERGIES: PCN The patient's Home Medications are listed below: THE FOLLOWING MEDICATIONS NEED TO BE RECONCILED: Amlodipine Aspirin Oral LOSARTAN The source(s) of the original Home Medication information: Not obtained. The following Medications were given to the patient in the Emergency Department: Dilaudid [IVP] IVP 0.5 mg, administered: 06/07/2016 4:36:00 PM The following Medications were prescribed to the patient: Hydrocodone/APAP 5mg / 325mg: take 1 orally every 6 hours as needed for pain. Dispense twenty (20). No refill. -- Bertha Frye, PMikeAMike-C
--- NOTE | 2016-06-08 03:30 | CONSULTATION REPORT ---
DATE OF CONSULTATION: 06/07/2016 CHIEF COMPLAINT: 1. Left wrist pain HISTORY OF PRESENT ILLNESS: The history is that the patient suffered a fall today and landed on her outstretched left hand, fractured her distal left radius. Was brought to emergency room. X-rays were taken, which confirmed the presence of the fracture. Orthopedic consultation was requested. PHYSICAL EXAMINATION: GENERAL: Shows her to have no other complaints. MUSCULOSKELETAL: She does have some dorsal angulation, some 2+ edema, but no open wounds at the left wrist, and her fingers are warm and pink. She has light touch sensation present throughout distally. There is 1 to 2+ radial pulse. The compartments themselves are soft. LAB/IMAGING: X-ray showed her to have a comminuted and dorsally displaced angulated fracture of the distal left radius. IMPRESSION: 1. The analysis is same: A left distal radius wrist fracture. PLAN: The plan was for reduction of the same. PROCEDURE: This was accomplished here in the emergency department without difficulty, injecting near to the fracture site with a hematoma block using sterile technique in a dorsal approach and 10 mL of 0.5% Marcaine. Once adequate anesthesia was achieved, a closed reduction was performed. She was placed in a sugar-tong splint with the wrist in 20 degrees of flexion and 20 degrees of pronation. The splint was secured in place with loosely applied Giacomo bandages. Once it hardened, x-rays were obtained, which showed almost perfect anatomic alignment of the joint surface and some comminution again at the fracture site, but overall good alignment was achieved. The patient tolerated without difficulty and will be discharged to home. The plans will be for her to refrain from forceful use of the arm, to elevate it and to ice it, to return for followup in our office in about a week's time. She was given a prescription for [place] as well 5/325. She can take 1 every 6 hours as needed for pain. A total number of 20 was prescribed.
== END 2016-06-07 19:44 | disposition home or self-care (01) ==
LOC: ED SRH 15:05
DX: S52.571A Other intraarticular fracture of lower end of right radius, initial encounter for closed fracture (principal); G31.89 Other specified degenerative diseases of nervous system; F03.90 Unspecified dementia, unspecified severity, without behavioral disturbance, psychotic disturbance, mood disturbance, and anxiety; W01.0XXA Fall on same level from slipping, tripping and stumbling without subsequent striking against object, initial encounter; Y93.9 Activity, unspecified; Y92.009 Unspecified place in unspecified non-institutional (private) residence as the place of occurrence of the external cause; Y99.9 Unspecified external cause status; I10 Essential (primary) hypertension; K21.9 Gastro-esophageal reflux disease without esophagitis; Z79.899 Other long term (current) drug therapy; Z79.82 Long term (current) use of aspirin